=== PATIENT | male | born 1945 | race Caucasian/White ===

== ENCOUNTER 2024-02-23 15:17 | Emergency (ER) | payer OTHER, SELFPAY ==
[2024-02-23 15:22] VITALS: BP 145/64; BMI 31.4
--- NOTE | 2024-02-23 16:47 | ED.GENMED ---
History of Present Illness
General
Chief Complaint: Back Pain
Source: patient
Exam Limitations: none
Time Seen by Provider: 02/23/24 16:28
Nursing documentation reviewed up to this point in time: agreed with
Travel History
Have you had any contact with someone who has COVID-19?: No
Do you have any symptoms of coronavirus? Fever > 100 degrees, chills, cough, shortness of breath, sore throat, loss of taste or smell, muscle aches, or headache?: No
History of Present Illness
History of Present Illness:
Patient is an 78-year-old male who presents to the ER for low back pain. Patient reports he has had some stiffness in his left lower back for the past week but today saw his chiropractor and this is gotten worse. He reports pain is worse with
sitting to standing standing very straight bending. He denies any radiation of pain he does not have radiation to his left leg or hip area. He denies any bowel or bladder incontinence denies any numbness tingling or weakness. He denies any trauma.
Past History
Past History
ED Past Medical History: Hypercholesterolemia
ED Past Surgical History: Appendectomy
Social History
Tobacco: Non-smoker
Living: with family
Employment: Employed
Family History
Family History: Negative Early CAD
Review of Systems
Review of Systems
Allergies reviewed?: Yes
All Other Systems: ROS reviewed and negative except as documented in HPI and ROS
Constitutional: Reports no symptoms; Denies fever, fatigue or chills
EENT: Reports no symptoms
Respiratory: Reports no symptoms
Cardiac: Reports no symptoms
ABD/GI: Reports no symptoms
: Denies dysuria, incontinence or bleeding
Musculoskeletal: Reports back pain (left lower back pain )
Skin: Reports no symptoms
Neurological: Reports no symptoms
Psychiatric: Reports no symptoms
Phy Exam
General Physical Exam
General Presentation: no apparent distress
General age: appears stated age
General Skin: warm and dry
General Habitus: normal
General Mental: alert
General Hydration: appears well hydrated
Neurological Exam
Neurological Exam: alert, oriented x3 and other (Normal dorsiflexion plantarflexion normal patellar reflexes negative straight leg raise b/l )
[place] Coma Scale
Eye Opening: Spontaneous
Verbal Response: Oriented
Motor Response: Obeys Commands
GCS Total Score: 15
Musculoskeletal Exam
Musculoskeletal Exam: other (Normal inspection to back patient point tender to the left lower lumbar region, no rash no CVA tenderness)
Skin Exam
Skin Exam: normal color and warm/dry
Psychiatric Exam
Psychiatric Exam: normal mood/affect
Course
Orders/Labs/Results
Orders:
Orders
02/23/24 16:45
diazePAM [Valium Injection] 5 mg IM NOW STA
02/23/24 16:46
Ketorolac [Toradol] 30 mg IM NOW STA
Lidocaine [Lidocaine 4% Patch] 1 patch TOPICAL NOW STA
Vital Signs
Initial and Last Documented VS:
Initial Vital Signs
Temp Pulse Resp BP Pulse Ox
97.9 F 48 16 145/64 98
02/23/24 15:22 02/23/24 15:22 02/23/24 15:22 02/23/24 15:22 02/23/24 15:22
Last Documented Vital Signs
Temp Pulse Resp BP Pulse Ox
97.9 F 48 16 145/64 98
02/23/24 15:22 02/23/24 15:22 02/23/24 15:22 02/23/24 15:22 02/23/24 15:22
MDM/Problems Addressed
Differential Diagnosis Includes:
Not limited to lumbar sprain strain.
MDM/Problems Addressed:
Symptoms are consistent muscular type pain. Patient is a very 78-year-old who coughs twice a week but he denies injury. Denies any recent injury fever or chills.
Patient is in no acute distress however on exam he is point tender in the left lateral lumbar region. He denies any radiation to his buttocks hip or leg. No bowel bladder incontinence he has a normal neurological and neurovascular exam. He is in
no acute distress. He has had this pain off and on reports back pain feels stiff with movement but today worse after seeing chiropractor. Will give only 1 dose of Toradol here for pain and IM Valium patient normally takes Aleve as needed at home
this was okayed by his family doctor he has no history of abnormal kidney function. He was last here in 2017 with normal kidney function but reports this is checked regularly. Will have patient take Aleve twice a day Tylenol in between Flexeril
only as needed with lidocaine patch.
Vital signs stable. Heart rate mildly low however looking back in previous visits patient's heart rate is in the high 40s to 50s. Patient asymptomatic
*Pulse Oximetry
Patient hypoxic: no
*Critical Care Note
Total Time (30-74mins, 75-104mins- exclusive of procedures): Not Applicable
ED Attending Note
-
Portions of this chart may have been created with voice recognition software.� Occasional wrong word or��sound alike� substitutions may have occurred due to the inherent limitations of voice recognition software.
Discharge Plan
Departure
Patient Disposition: Home (Routine Discharge)
Date of Disposition: 02/23/24
Time of Disposition: 17:26
Patient with high blood pressure during this ER visit?: Yes
Condition: Fair
Covid-19: Not Applicable
Discharge Problem:
Low back pain
Instructions: Low Back Pain (DC), BLOOD PRESSURE
Prescriptions:
New
cyclobenzaprine 10 mg tablet
10 mg PO Q8H PRN (Reason: muscle spasm) Qty: 10 0RF
lidocaine 5 % adhesive patch,medicated
1 patch topical DAILY PRN (Reason: back pain) Qty: 15 0RF
Rx Instructions:
Remove after 12 hrs
No Action
Psyllium Fiber
2 cap PO BID
sennosides [senna] 1 TABLET tablet
2 tab PO BID 0RF
acetaminophen 325 MG tablet
650 mg PO QID Qty: 0 0RF
prednisone 10 MG tablet
40 mg PO .TAPER Qty: 10 0RF
Rx Instructions:
4 tabs 11/2, 3 tabs 11/3, 2 tabs 11/4, 1 tab last day, then stop
magnesium hydroxide 30 ML suspension
30 ml PO DAILYPRN PRN (Reason: constipation) 0RF
aspirin 325 MG tablet,delayed release (DR/EC)
325 mg PO DAILY 0RF
gemfibrozil 600 MG tablet
600 mg PO DAILY 0RF
docusate sodium 100 MG capsule
100 mg PO BID 0RF
losartan 100 MG tablet
100 mg PO DAILY 0RF
Rx Instructions:
hold sbp <130
oxycodone 5 MG tablet
5 mg PO Q4HPRN PRN (Reason: moderate-severe pain) Qty: 90 0RF
Rx Instructions:
dx tka
1-2 tabs
ongoing therapy
naproxen 500 MG tablet
500 mg PO DAILY Qty: 0 0RF
Rx Instructions:
*TAKE WITH FOOD
*DO NOT TAKE [id number] OF ASA---BLOCKS ABSORPTION
atorvastatin 40 MG tablet
40 mg PO DAILY
ascorbic acid (vitamin C) [Vitamin C] 1,000 MG tablet
1,000 mg PO DAILY
pantoprazole 40 MG tablet,delayed release (DR/EC)
40 mg PO DAILY
loratadine 10 MG tablet
10 mg PO DAILY
cholecalciferol (vitamin D3) [Vitamin D3] 1,000 UNIT capsule
1,000 unit PO BID
B cmplx 4-vit [id number] [Vital-D Rx] 1 EACH tablet
1 tab PO DAILY
Patient Comments:
Pt is unsure of dose
metoprolol succinate 25 MG tablet extended release 24 hr
25 mg PO DAILY
Referrals:
Marina Oropeza, [Family Provider] -
Activity Restrictions/Additional Instructions:
As discussed you may take your Aleve twice a day with Tylenol in between. A lidocaine patch was sent to your pharmacy take as directed. Also a prescription for Flexeril muscle laxer was also sent to her pharmacy was drowsiness no driving or drink
alcohol while on medication. Follow-up with your family doctor next 3 days for reevaluation of symptoms and return to the ER if any worsening of symptoms including worsening back pain fever chills numbness tingling weakness in lower extremities or
loss of bowel or bladder.
As discussed please ice at least for the next 24 hours followed by warm moist heat avoid twisting turning bending over. You may gently walk as discussed.
Interventions
Interventions:
*Risk Screen - Suicide Last Done: 02/23/24 15:22
*Neglect/Abuse Screening Last Done: 02/23/24 15:22
ED- Fall Risk Assessment Last Done: 02/23/24 15:22
Discharge Date and Time
Print Language: CITIZEN OF [place]
[2024-02-23] MEDS: TORADOL 30 MG IM (16:52)
[2024-02-23] MEDS: VALIUM INJECTION 5 MG IM (16:52)
[2024-02-23] MEDS: LIDOCAINE 4% PATCH 1 PATCH TOPICAL (16:52)
[2024-02-23 17:34] VITALS: BP 140/72
== END 2024-02-23 17:57 | disposition home or self-care (01) ==
LOC: EMR 15:17
PROVIDERS: EMERGENCY PHYSICIAN Emergency Medicine; FAMILY PHYSICIAN Family Medicine
DX: M54.50 Low back pain, unspecified (principal); E78.00 Pure hypercholesterolemia, unspecified; Z90.49 Acquired absence of other specified parts of digestive tract
CPT/HCPCS: 99283; 96372

== ENCOUNTER → 2024-07-21 06:17 | Day surgery (SDC) | payer OTHER, SELFPAY ==
[2024-07-21] VITALS (10 sets, daily range): BP systolic 140–158; BP diastolic 66–84; BMI 31.9
[2024-07-21] MEDS: LOW STRENGTH ASPIRIN 81 MG PO (07:23)
[2024-07-21] MEDS: NSS 320 ML IV (07:25)
--- NOTE | 2024-07-21 09:37 | ITS.CL.CATH ---
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
Cardiac Catheterization
Procedure Report:
CARDIAC CATHETERIZATION REPORT
Date of Procedure: 07/21/2024
Referring: Kayla Shea M.D.
INDICATION: Typical angina.
PROCEDURE:
1. Left heart catheterization.
2. Coronary angiography.
3. IFR of the mid LAD.
4. FFR of the mid LAD.
ACCESS:
6 Burmese right radial artery.
CATHETERS:
1. 5 Burmese JR4.
2. 5 Burmese JL 3.5.
3. 6 Burmese EBU 3.5 guiding catheter.
HEMODYNAMIC DATA
Weight (kg): 106.6
AO (s/d/x, mmHg): 123/64/88
LV (s/x mmHg): 129/14
LEFT VENTRICULOGRAPHY: Not performed.
CORONARY ANGIOGRAPHY
Dominance: Codominant.
Left Main: Normal size, bifurcating vessel.
LAD: Normal size vessel giving rise to 2 significant diagonals. There is a 30-40% lesion in the mid LAD, immediately after the origin of D2.
Ramus: Congenitally absent.
Circumflex: Large size, codominant vessel giving rise to 2 obtuse marginals before terminating as a left posterolateral branch and a small partial LPDA. There is no coronary artery disease.
RCA: Normal size, codominant vessel. There is no coronary artery disease.
INTERVENTION(S)
1. Successful IFR of the 30-40% mid LAD lesion, demonstrating borderline disease (IFR = 0.92).
2. Successful FFR of the 30-40% mid LAD lesion, demonstrating nonocclusive disease (FFR = 0.91).
Narrative:
The decision was made to perform physiologic testing. The diagnostic catheter was removed over a wire and exchanged for a(n) 6 Burmese EBU 3.5 guiding catheter. The guiding catheter was advanced into the ascending aorta and seated in the left main
coronary artery. Additional heparin was given to obtain an ACT greater than 250 seconds. An iFR wire was zeroed outside of the body, then inserted into the guiding sheath. The wire was advanced and the transducer was normalized just outside of the
guiding catheter tip. The wire was advanced into the distal LAD, just beyond the 30-40% lesion. Three iFR measurements were taken. The lesion was determined to be borderline (0.92).
In light of the borderline IFR finding, the decision was made to perform provocative testing. Maintaining of the pressure wire position, and infusion of adenosine was started and maintained for 2 minutes. After achieving maximum hyperemia, PD PA
was remeasured and confirmed nonocclusive disease (FFR = 0.91).
The catheter was disengaged and the Omni wire was withdrawn.
Closure Device: Vascular band.
Radiation (mGy): 582.03
DAP (cm2.Gy): 35.1716
Fluoroscopy time (minutes): 6.1
Sedation time (minutes): 52
CONCLUSIONS
1. Codominant circulation with a nonocclusive 30-40% mid LAD lesion (IFR = 0.92, FFR = 0.91).
2. Normal filling pressures (LVEDP = 14 mmHg at 106.6 kg).
RECOMMENDATIONS:
1. Expectant management after cardiac catheterization via right radial approach.
2. Limited weight bearing on the right for one week.
3. Increase metoprolol to 50 mg daily for possible microvascular disease.
4. Continue aggressive primary prevention with high-dose, high potency statin and gemfibrozil.
5. Stable for outpatient follow-up.
Copy to: Kayla Shea M.D., Marina Oropeza D.O.
Ronald Mcbride DO, FACC, FACP
[2024-07-21] MEDS: NSS 1000 IV (09:47)
[2024-07-21 12:49] LABS: ACT-LR - POC > 397 Seconds (116-155)
== END | disposition home or self-care (01) ==
LOC: CATH 06:17
PROVIDERS: ATTENDING PHYSICIAN Internal Medicine Cardiovascular Disease; FAMILY PHYSICIAN Family Medicine; OTHER PHYSICIAN Internal Medicine Cardiovascular Disease
DX: I25.118 Atherosclerotic heart disease of native coronary artery with other forms of angina pectoris (principal); I10 Essential (primary) hypertension; E78.5 Hyperlipidemia, unspecified; K21.9 Gastro-esophageal reflux disease without esophagitis; Z87.891 Personal history of nicotine dependence; Z79.82 Long term (current) use of aspirin
CPT/HCPCS: 93799; C1769; C1894; 85347; 93458; 93571; J0153; Q9967